=== PATIENT | male | born 1975 | race Two or more races ===

== ENCOUNTER 2024-10-03 14:26 | Emergency (ER) | payer MEDICAID, SELFPAY ==
[2024-10-03 14:37] VITALS: BP 151/81; PULSE 87; RESP 19; TEMP 37.1; O2SAT 97; BMI 34.0
--- NOTE | 2024-10-03 14:41 | XR_ITS ---
Examination: Right femur 2 views Technique bone Right femur 2 views Date and time: October 03, 2024, 1545 hours INDICATIONS: Sudden onset femur pain beginning one month ago. FINDINGS: No hip fracture or hip dislocation Shaft of the femur are intact No cortical bone destruction IMPRESSION: No fracture detected No significant hip arthritic change
--- NOTE | 2024-10-03 14:41 | XR_ITS ---
Examination: Duplex scan of the lower extremity, unilateral right Date and time of exam: October 03, 2024 1452 hours INDICATIONS: Right leg pain beginning one month ago Technique: Duplex scan of the extremity veins using B-mode/grayscale imaging and Doppler spectral analysis and color flow Attention is directed to internal echogenicity, compression and augmentation involving these veins, color flow assessment, spectral analysis Findings: Major deep venous structures in the extremity demonstrate normal course and caliber. There is no evidence of deep vein thrombosis. Normal color flow and spectral analysis Impression: Negative for DVT..
--- NOTE | 2024-10-03 14:41 | XR_ITS ---
Examination: Knee, right , 3 views Technique: Knee AP, lateral, oblique 3 views Date and time of exam: October 03, 2024 1539 hours INDICATIONS: Sudden onset knee pain today. FINDINGS: Mild osteopenia. No fracture or dislocation. Mild narrowing medial joint space. Small to moderate knee effusion IMPRESSION: No fracture.
[2024-10-03] MEDS: KETOROLAC INJ 30 MG/ML VIAL IM (14:49)
--- NOTE | 2024-10-03 17:08 | EDNOTE_ITS ---
Upper Extremity Injury RME/HPI General Chief Complaint: Extremity Injury, Upper Stated Complaint: RIGHT HIP PAIN Time Seen by Provider: 10/03/24 14:32 Arrival date/time: 10/03/24 14:26 49-year-old male presents to the emergency department today for complaint of right hip pain right upper leg pain or right knee pain ongoing intermittently for the last couple of months patient reports no fever nausea or vomiting. Limitations: no limitations Related Data Home Medications ?Medication ?Instructions ?Recorded ?Confirmed ibuprofen 800 mg tablet 800 mg PO Q8H PRN Pain 01/1301/14/20 lisinopril 40 mg tablet 40 mg PO QDAY 01/14/2001/13 penicillin V potassium 500 mg 500 mg PO TID 01/14/20 1 03/15/19 tablet Previous Rx's ?Medication ?Instructions ?Recorded cyclobenzaprine 10 mg tablet 10 mg PO TID PRN muscle s pasm 10 10/03/24 days #30 tab-caps Allergies Allergy/AdvReac Type Severity Reaction Status Date / Time NKA* Allergy Uncoded 12/13/21 14:53 Review of Systems Review of Systems Systems Reviewed: All systems reviewed, normal except as documented Constitutional Constitutional: Reports system reviewed and no additional complaints, except as documented, Denies fever(s) and Denies headache(s) Eyes Eyes: Reports system reviewed and no additional complaints, except as documented and Denies blurry vision ENT Ears, Nose, Mouth, and Throat: Reports system reviewed and no additional complaints, except as documented, Denies headache(s), Denies nasal congestion and Denies nasal discharge Cardiovascular Cardiovascular: Reports system reviewed and no additional complaints, except as documented, Denies chest pain and Denies dyspnea Respiratory Respiratory: Reports system reviewed and no additional complaints, except as documented, Denies chest congestion, Denies cough and Denies dyspnea Gastrointestinal Gastrointestinal: Reports system reviewed and no additional complaints, except as documented and Denies abdominal pain Musculoskeletal Musculoskeletal: Reports system reviewed and no additional complaints, except as documented, Denies abnormal gait, Reports arthralgias, Denies deformity, Denies numbness, Reports stiffness and Denies tingling Integumentary/Breasts Skin/Breast: Reports system reviewed and no additional complaints, except as doc umented and Denies rash Neurologic Neurologic: Reports system reviewed and no additional complaints, except as documented, Reports as per HPI, Denies abnormal gait, Denies headache(s), Denies numbness and Denies tingling Past Medical History Past Medical History CARDIAC: Positive Hypertension; Negative Congestive Heart Failure RESPIRATORY: Negative Chronic Obstructive Pulmonary Disease (COPD) GENITOURINARY: Negative Renal Disease ENDOCRINE: Negative Diabetes Mellitus Type 1 or Diabetes Mellitus Type 2 Surgical History SURGICAL: Positive Abdominal Surgery (Appendectomy ) Social History SMOKING STATUS: Never smoker SUBSTANCE USE: former substance user (former cocaine use in 2016) ED Exam General Limitations: Present no limitations General appearance: Present alert and in no apparent distress Head Head exam: Present atraumatic, normocephalic and normal inspection Eye Eye exam: Present normal appearance, PERRL and EOMI; Absent conjunctival injection ENT ENT exam: Present normal exam, normal oropharynx and mucous membranes moist Neck Neck exam: Present normal inspection, full ROM and trachea midline Chest Chest inspection: Present normal inspection and symmetric chest wall rise Respiratory Respiratory exam: Present normal lung sounds bilaterally Cardiovascular Cardiovascular exam: Present regular rate, normal rhythm and normal heart sounds Abdominal Exam Abdominal exam: Present soft and normal bowel sounds Extremities Exam Extremities exam: Present full ROM, tenderness and normal capillary refill; Absent joint swelling Back Exam Back exam: Present normal inspection and full ROM Neurological Exam Neurological exam: Present alert, oriented X3 and CN II-XII intact Psychiatric Psychiatric exam: Present normal affect and normal mood Skin Skin exam: Present warm, dry, intact and normal color Course Quality Measures none Orders Category Date Time Status US venous doppler LE RT Stat Exams 10/03/24 14:41 Completed XR femur RT 2V Stat Exams 10/03/24 14:41 Completed XR knee RT 3V Stat Exams 10/03/24 14:41 Completed Ketorolac Inj [Toradol Inj] Med 10/03/24 14:42 Discontinued 30 mg IM X1 ONE Vital Signs Vital signs: Vital Signs Temperature 98.7 F 10/03/24 14:37 Pulse Rate 87 10/03/24 14:37 Respiratory Rate 19 10/03/24 14:37 Blood Pressure 151/81 H 10/03/24 14:37 Pulse Oximetry (%) 97 10/03/24 14:37 Oxygen Delivery Method Room Air 10/03/24 14:37 O2 saturation 97% room air within normal limits Extremity Injury MDM Narrative MDM Narrative:: 49-year-old male presents to the emergency department today for complaint of right hip pain right upper leg pain or right knee pain ongoing intermittently for the last couple of months patient reports no fever nausea or vomiting. On exam patient well-appearing patient does not appear ill or toxic no acute distress patient walks steady gait Imaging obtained no acute emergent findings noted Patient discharged home in no distress to follow-up with primary care doctor in the next 24 to 48 hours and for any worsening symptoms to return to the ER immediately Patient data External records reviewed:: [facility] previous records Clinical information provided by:: patient Social determinants that could affect healthcare access:: none Patient has the following chronic illnesses:: None How is presenting disease/condition affected by chronic disease/condition?: no chronic disease Evaluation data The following diagnostics were reviewed and interpreted by me:: radiology exam(s) Lab and/or radiology exams considered but not ordered:: Radiology Interpretation Summary: Reviewed by me Medications / Prescriptions Medications or Prescriptions considered but not ordered:: Given Medication administrations:: Medication Administration History Discontinued Medications Ketorolac Tromethamine (Ketorolac Inj 30 Mg/Ml Vial) 30 mg IM X1 ONE Stop: 10/03/24 14:43 Last Admin: 10/03/24 14:49 Dose: 30 mg Documented By: MF Given Consultations Consultation(s) initiated? (list below): No Diagnosis Upper Extremity Injury Differential Diagnosis: other (Right leg pain, right hip pain, sprain) Most likely diagnosis given after review of the tests above:: Right leg pain Admission Indicated Admission indicated?: not indicated Admission Request Was there a request for admission?: No Disposition Plan Disposition Plan: Discharge Discharge Attestation Discharge Attestation: The patient and all family members were given an opportunity to ask questions and understood the discharge instructions. Discharge instructions specifically effects, indications for sooner follow up or return to the emergency department, and the expected course of current diagnosis. Patient condition: Stable Discharge Plan Plan Patient Disposition: HOME (Self Care) Discharge Disposition comment: Stable Prescriptions/Referrals Prescriptions/Med Rec: New cyclobenzaprine 10 mg tablet 10 mg PO TID PRN (Reason: muscle spasm) 10 Days Qty: 30 0RF No Action lisinopril 40 mg Tablet 40 mg PO QDAY ibuprofen 800 mg tablet 800 mg PO Q8H PRN (Reason: Pain) penicillin V potassium 500 mg tablet 500 mg PO TID Referrals: No Primary/Family,Physician [Primary Care Provider] - 10/05/24 Problem List Clinical Impression: Leg pain, right Patient/Caregiver Discharge Instructions Education Materials: ED RICE Additional Instructions: Please follow up with your primary care doctor in the next 24-48hrs for any worsening symptoms return here immediately Print Language: Ukrainian Stand Alone Forms: Christina Award Info., Work/School Release, Patient Portal Info Letter PA/MAJOR CASE DETECTIVE Supervising Physician PA/MAJOR CASE DETECTIVE Supervising Physician: Dr. guaman
== END 2024-10-03 17:33 | disposition home or self-care (01) ==
PROVIDERS: Emergency Provider Family Medicine
DX: M79.651 Pain in right thigh (principal); M25.561 Pain in right knee; M79.604 Pain in right leg
CPT/HCPCS: 73552; 73562; 93971; 96372; 99283; J1885

== ENCOUNTER 2024-11-10 16:42 | Emergency (ER) | payer MEDICAID, SELFPAY ==
[2024-11-10 17:16] VITALS: BP 156/90; PULSE 87; RESP 16; TEMP 36.9; O2SAT 99
--- NOTE | 2024-11-10 17:22 | XR_ITS ---
Examination: CT abdomen and pelvis without contrast. Coronal 3-D reconstructions. Sagittal 2-D reconstructions. Date and time of exam:November 10, 2024, 1803 hrs. Indications: Abdominal pain nausea vomiting beginning 2 days ago. CTDI: vol (mGy): 8.56 DLP: (mGycm): 582. Technique: Axial images of the abdomen have been obtained, 3 mm slice thickness Intravenous contrast material has not been administered. Low dose protocols were performed. One or more of the following dose reduction techniques were used; automated exposure control, adjustment of the mA and/or KV according to patient size, use of iterative reconstruction technique. Findings: Liver is irregular in contour and enlarged, 20 cm Contracted gallbladder Splenomegaly 12.5 cm No pancreatic or adrenal mass Aorta normal size No renal or ureteral calculi, no hydronephrosis. No bowel obstruction No diverticulitis Urinary bladder wall thickening up to 8 mm No significant prostatomegaly There is inflammatory change medial to the cecum with a small tubular structure which may represent a mildly thickened appendix Moderate osteopenia Impression: Primary hepatocellular disease, hepatomegaly 20 cm Mild splenomegaly. No renal or ureteral calculi, no hydronephrosis There is mild inflammatory change medial to the cecum, axial image 142 with a tubular structure which may represent a mildly thickened appendix, recommend repeat CT scan abdomen pelvis post intravenous contrast follow-up to exclude appendicitis Urinary bladder wall thickening up to 8 mm, consider cystitis
--- NOTE | 2024-11-10 17:22 | PD.EDRME ---
Rapid Medical Screening Exam RME Arrival date/time: 11/10/24 16:42 49-year-old male with a history of hypertension presents to the emergency room with a chief complaint of rectal bleeding, coughing up blood, and lower extremity swelling. I have greeted and performed a focused initial assessment of this patient. A comprehensive ED assessment and evaluation of the patient, analysis of all test results, and completion of the medical decision making process will be conducted by additional ED providers. Chief Complaint: Nausea/Vomiting/Diarrhea Time Seen by Provider: 11/10/24 17:09 Vital signs: Vital Signs Temperature 98.5 F 11/10/24 17:16 Pulse Rate 87 11/10/24 17:16 Respiratory Rate 16 11/10/24 17:16 Blood Pressure 156/90 H 11/10/24 17:16 Pulse Oximetry (%) 99 11/10/24 17:16 Oxygen Delivery Method Room Air 11/10/24 17:16 Vital signs reviewed by provider: Yes
[2024-11-10 17:50] LABS: Basophils # (Auto) 0.0 Thou/mm3 (0.0-0.2); Basophils % (Auto) 0 % (0-2.5); Eosinophils # (Auto) 0.1 Thou/mm3 (0.0-0.5); Eosinophils % (Auto) 1 % (0-10); Hematocrit 30.9 % (41.0-53.0); Hemoglobin 10.8 g/dL (13.5-16.0); Immature Granulocytes Auto 0.04 Thou/mm3 (0.00-0.00); Lymphocytes # (Auto) 2.5 Thou/mm3 (1.0-4.8); Lymphocytes % (Auto) 23 % (10-50); Mean Corpuscular HGB Conc 35.0 g/dl (31.0-37.0); Mean Corpuscular Hemoglobin 31.6 pg (25.0-35.0); Mean Corpuscular Volume 90 fL (80-100); Monocytes # (Auto) 1.3 Thou/mm3 (0.0-0.8); Monocytes % (Auto) 12 % (0-12); Neutrophils # (Auto) 6.9 Thou/mm3 (1.8-7.7); Neutrophils % (Auto) 64 % (37-80); Nucleated Red Blood Cell # 0.00 Thou/mm3 (0.00-0.00); Nucleated Red Blood Cell % 0 /100 WBC (0); Platelet Count 126 Thou/mm3 (140-440); RDW Standard Deviation 45.5 fL (35.1-43.9); Red Blood Count 3.42 Miln/mm3 (4.50-5.90); White Blood Count 10.8 Thou/mm3 (3.8-10.6)
[2024-11-10 18:00] LABS: Collection Type, Urine Clean Catch; Squamous Epithelial Cell,Urine 0 /hpf (0-5); WBC,Urine 0 /hpf (0-5)
[2024-11-10 18:09] LABS: Alanine Aminotransferase 44 U/L (10-49); Albumin, Serum 3.4 gm/dL (3.5-5.0); Albumin/Globulin Ratio 1.0 (1.2-2.2); Alkaline Phosphatase 223 U/L (46-116); Anion Gap 11 (7-16); Aspartate Amino Transferase 86 U/L (0-34); BUN/Creatinine Ratio 30 Ratio (12-20); Bilirubin,Total 1.8 mg/dL (0.3-1.2); Blood Urea Nitrogen 18 mg/dL (9-23); Calcium 9.1 mg/dL (8.3-10.6); Calcium (Corrected) 9.6 mg/dL (8.5-10.1); Carbon Dioxide 26.5 mMol/L (20.0-31.0); Chloride 101 mMol/L (98-107); Creatinine (Component) 0.6 mg/dL (0.6-1.3); Estimated Creatinine Clearance 149.9 mL/min (>60); Globulin 3.4 gm/dL (2.3-3.5); Glucose 164 mg/dL (74-106); Lipase 54 U/L (12-53); Osmolality,Calculated 281 (275-295); Potassium 4.3 mMol/L (3.4-5.1); Sodium 138 mMol/L (136-145); Total Protein 6.8 gm/dL (5.7-8.2); eGFR > 60 See Note
[2024-11-10 18:11] LABS: INR 1.1 (0.9-1.3); Partial Thromboplastin Time 25.4 Seconds (22.0-36.0); Prothrombin Time 11.7 Seconds (9.0-12.2)
[2024-11-10 18:31] LABS: Amorphous Crystals,Urine Present (Absent); Bilirubin,Urine Negative (Negative); Blood,Urine Negative (Negative); Clarity,Urine Clear (Clear/Hazy); Color,Urine Colorless (Lt Yel-Yel); Glucose, Urine Negative (Negative); Ketones,Urine Negative (Negative); Leukocyte Esterase,Urine Negative (Negative); Nitrite,Urine Negative (Negative); PH,Urine 6.0 (5.0-7.0); Protein,Urine Negative (Neg - Trace); RBC,Urine 1 /hpf (0-3); Specific Gravity,Urine 1.005 (1.001-1.035); Urobilinogen,Urine Negative mg/dL (0.0-1.0)
--- NOTE | 2024-11-10 19:25 | EDNOTE_ITS ---
Nausea/Vomit./Diarrhea-RME/HPI General Chief complaint: Nausea/Vomiting/Diarrhea Stated complaint: N/V X 1 DAY; DIARRHEA X 3 DAYS Time Seen by Provider: 11/10/24 17:09 Arrival date/time: 11/10/24 16:42 RME / HPI RME / HPI Narrative: 11/10/24 16:42 49-year-old male with a history of hypertension presents to the emergency room with a chief complaint of rectal bleeding, coughing up blood, and lower extremity swelling. I have greeted and performed a focused initial assessment of this patient. A comprehensive ED assessment and evaluation of the patient, analysis of all test results, and completion of the medical decision making process will be conducted by additional ED providers. --- See [facility] for Dr. Harris's HPI documentation. Related Data Home Medications ?Medication ?Instructions ?Recorded ?Confirmed ibuprofen 800 mg tablet 800 mg PO Q8H PRN Pain 01/1301/14/20 lisinopril 40 mg tablet 40 mg PO QDAY 01/14/2001/13 penicillin V potassium 500 mg 500 mg PO TID 01/14/20 1 03/15/19 tablet Previous Rx's ?Medication ?Instructions ?Recorded famotidine 40 mg tablet 40 mg PO .bedtime #30 tabs 0 11/10/24 lorazepam 2 mg tablet (Ativan) 2 mg PO Q8H #9 tabs 11/26 omeprazole 40 mg capsule,delayed 40 mg PO QDAY #30 cap s 11/10/24 release ondansetron 4 mg disintegrating 4 mg PO TID PRN nausea and 11/10/24 tablet vomiting 30 days #10 tabs Allergies Allergy/AdvReac Type Severity Reaction Status Date / Time No Known Allergies Allergy Verified 11/10/24 16:49 Review of Systems Review of Systems Systems Reviewed: All systems reviewed, normal except as documented Past Medical History Past Medical History CARDIAC: Positive Hypertension; Negative Congestive Heart Failure RESPIRATORY: Negative Chronic Obstructive Pulmonary Disease (COPD) GENITOURINARY: Negative Renal Disease ENDOCRINE: Negative Diabetes Mellitus Type 1 or Diabetes Mellitus Type 2 Surgical History SURGICAL: Positive Abdominal Surgery (Appendectomy ) Social History SMOKING STATUS: Never smoker SUBSTANCE USE: former substance user (former cocaine use in 2016) ED Exam Narrative Physical exam: See [facility] for Dr. Harris's physical exam documentation. Course Quality Measures none Orders Category Date Time Status CT abdomen pelvis wo con Stat Exams 11/10/24 17:22 Completed CBC Stat Lab 11/10/24 17:37 Completed CMP [Comprehensive Metabolic Panel] Stat Lab 11/10/24 17:37 Completed Lipase Stat Lab 11/10/24 17:37 Completed PT [Prothrombin Time with INR] Stat Lab 11/10/24 17:37 Completed PTT [Partial Thromboplastin Time] Stat Lab 11/10/24 17:37 Completed Type and Screen Stat Lab 11/10/24 17:37 Completed UA [Urinalysis] Stat Lab 11/10/24 17:55 Completed Urine Culture Stat Lab 11/10/24 17:55 Received Vital Signs Vital signs: Vital Signs Temperature 98.5 F 11/10/24 17:16 Pulse Rate 87 11/10/24 17:16 Respiratory Rate 16 11/10/24 17:16 Blood Pressure 156/90 H 11/10/24 17:16 Pulse Oximetry (%) 99 11/10/24 17:16 Oxygen Delivery Method Room Air 11/10/24 17:16 Nausea/Vomiting/Diarrhea MDM Narrative MDM Narrative:: This section includes all my notes and documentations, including HPI, PE, and ED course. Abdiel Harris MD HPI: 49yo male here with nausea and vomiting for ~12 hours. Patient has had black stools for the last 3 days and has mild epigastric pain. No hematemesis. Patient is a heavy drinker. No other complaints reported. ROS: All negative except as documented in HPI. Physical Exam: General: Alert and oriented. No acute distress when remaining still. Eyes: Conjunctivae and lids clear. ENT: No nasal congestion. Neck: Supple. Heart: RRR. Lungs: No respiratory distress. Good air movement. No rhonchi, wheezing, rales. Abdomen: Soft with no tenderness. Normal bowel sounds. No distension. No rebound or guarding. Skin: Warm and dry. Neuro: Alert and oriented X 3. I reviewed all diagnostic test results. My review of the CT abdomen pelvis report is NAD. Blood tests remarkable for Hgb 10.8, Total Bilirubin 1.8, AST 86, Alk Phos 223. UA unremarkable. At this point, diagnoses include: Alcohol abuse Recommended quitting alcohol and more outpatient care. Based on my best medical judgment, made decision no further evaluation or treatment indicated at this time. Patient understands and agrees to the discharge instructions customized and printed, see below. Discharge Instructions from Dr. Harris printed for you: 1. After extensive evaluation, the main problem is alcohol abuse. 2. To prevent serious injuries and illnesses (some fatal), we need to stop drinking alcohol today. 3. To help prevent alcohol withdrawal (see attached handout), take Ativan 2 mg every 8 hours as prescribed. If you continue to drink alcohol, don't take Ativan. 4. Eat regular nutritious meals. For good hydration, increase oral fluid and maintain clear urine. If dark or yellow, increase oral fluid. Zofran for nausea/vomiting. 5. Take multivitamin and folic acid and thiamine every day. Can buy them [id number] in pharmacies. 6. Take omeprazole every morning and famotidine every evening to prevent internal bleeding. 7. See a private doctor on 11/11/2024 for recheck and further care. Ask for help to quit alcohol without alcohol withdrawal. You may need more prescription for Ativan. Ask to review all test results and official radiology reports, to make sure you receive all necessary follow-ups and monitoring. To make sure there is no serious intra-abdominal condition, ask for help with more investigation not available here in the ER. Such as EGD or scoping the stomach, colonoscopy or scoping the colon, and referral to see special client bus driver. 8. Seek immediate medical care with worsening or with any concerns. Abdiel Harris MD Patient data External records reviewed:: [facility] previous records (Per chart review, patient was seen here on 01/14/20 for alcohol withdrawal.) Clinical information provided by:: patient Social determinants that could affect healthcare access:: none Patient has the following chronic illnesses:: HTN How is presenting disease/condition affected by chronic disease/condition?: uneffected by Evaluation data The following diagnostics were reviewed and interpreted by me:: lab results and radiology exam(s) Lab and/or radiology exams considered but not ordered:: none Interpretation Summary: I reviewed all diagnostic test results. My review of the CT abdomen pelvis report is NAD. Blood tests remarkable for Hgb 10.8, Total Bilirubin 1.8, AST 86, Alk Phos 223. UA unremarkable. Medications / Prescriptions Medications / Prescriptions considered but not ordered:: none Medication administrations:: none Consultations Consultation(s) initiated? (list below): No Diagnosis Nausea Differential Diagnosis: traveler's diarrhea, food poisoning, gastroenteritis, dehydration and other (Alcohol abuse, GERD, gastritis, PUD, biliary colic) Most likely diagnosis given after review of the tests above:: Alcohol abuse Admission Indicated Admission indicated?: not indicated Explain why admission is indicated or not indicated:: With no condition needing emergent intervention, there was no indication for admission. Admission Request Was there a request for admission?: No Disposition Plan Disposition Plan: Discharge Discharge Attestation Discharge Attestation: The patient and all family members were given an opportunity to ask questions and understood the discharge instructions. Discharge instructions specifically effects, indications for sooner follow up or return to the emergency department, and the expected course of current diagnosis. Patient condition: Stable Discharge Plan Plan Patient Disposition: HOME (Self Care) Prescriptions/Referrals Prescriptions/Med Rec: New famotidine 40 mg tablet 40 mg PO .bedtime Qty: 30 0RF omeprazole 40 mg capsule,delayed release(DR/EC) 40 mg PO QDAY Qty: 30 0RF lorazepam [Ativan] 2 mg tablet 2 mg PO Q8H Qty: 9 0RF ondansetron 4 mg tablet,disintegrating 4 mg PO TID PRN (Reason: nausea and vomiting) 30 Days Qty: 10 0RF No Action lisinopril 40 mg Tablet 40 mg PO QDAY ibuprofen 800 mg tablet 800 mg PO Q8H PRN (Reason: Pain) penicillin V potassium 500 mg tablet 500 mg PO TID Referrals: No Primary/Family,Physician [Primary Care Provider] - In 1 week Problem List Clinical Impression: Alcohol abuse Patient/Caregiver Discharge Instructions Discharge Activity: activity as tolerated Education Materials: ED Alcohol Withdrawal, ED Alcohol Abuse Additional Instructions: Discharge Instructions from Dr. Harris printed for you: 1. After extensive evaluation, the main problem is alcohol abuse. 2. To prevent serious injuries and illnesses (some fatal), we need to stop drinking alcohol today. 3. To help prevent alcohol withdrawal (see attached handout), take Ativan 2 mg every 8 hours as prescribed. If you continue to drink alcohol, don't take Ativan. 4.? Eat regular nutritious meals. For good hydration, increase oral fluid and maintain clear urine.? If dark or yellow, increase oral fluid. Zofran for nausea/vomiting. 5.? Take multivitamin and folic acid and thiamine every day. Can buy them [id number] in pharmacies. 6.? Take omeprazole every morning and famotidine every evening to prevent internal bleeding. 7.? See a private doctor on 11/11/2024 for recheck and further care. Ask for help to quit alcohol without alcohol withdrawal. You may need more prescription for Ativan. Ask to review all test results and official radiology reports, to make sure you receive all necessary follow-ups and monitoring. To make sure there is no serious intra-abdominal condition, ask for help with more investigation not available here in the ER.? Such as EGD or scoping the stomach, colonoscopy or scoping the colon, and referral to see special client bus driver. 8.? Seek immediate medical care with worsening or with any concerns. Instrucciones de nimco del Dr. Harris, impresas para usted: 1. Tras jean-claude evaluaci?n exhaustiva, el problema principal es el abuso de alcohol. 2. Para prevenir lesiones y enfermedades graves (algunas mortales), debemos dejar de beber alcohol hoy mismo. 3. Para ayudar a prevenir la abstinencia alcoh?lica (diego folleto adjunto), tome Ativan 2 mg cada 8 horas seg?n lo prescrito. Si contin?a bebiendo alcohol, no tome Ativan. 4. Consuma comidas nutritivas con regularidad. Para jean-claude buena hidrataci?n, aumente la ingesta de l?quidos por v?a oral y mantenga la orina sara. Si la orina es oscura o amarilla, aumente la ingesta de l?quidos por v?a oral. Zofran para las n?useas y los v?mitos. 5. [place] multivitam?nicos, ?cido f?shereen y tiamina todos los d?as. Puede comprarlos sin receta en farmacias. 6. [place] omeprazol todas las ma?anas y famotidina todas las noches para prevenir hemorragias internas. 7. Consulte con un m?dico particular el 12/10/2024 para jean-claude nueva revisi?n y atenci?n adicional. [place] ayuda para dejar el alcohol sin s?ndrome de abstinencia. Es posible que necesite jean-claude nueva receta de Ativan. [place] la revisi?n de todos los resultados de las pruebas y los informes radiol?gicos oficiales para asegurarse de recibir todos los seguimientos y la monitorizaci?n necesarios. Para asegurarse de que no haya jean-claude afecci?n intraabdominal grave, solicite ayuda con otras pruebas que no est?n disponibles en urgencias, husam jean-claude endoscopia estomacal (EGD) o jean-claude endoscopia g?strica, jean-claude colonoscopia o jean-claude endoscopia de colon, y jean-claude derivaci?n a un gastroenter?logo. 8. Busque atenci?n m?dica inmediata si presenta empeoramiento o si tiene alguna inquietud. Print Language: Ukrainian Stand Alone Forms: Christina Award Info., Patient Portal Info Letter
== END 2024-11-10 19:50 | disposition home or self-care (01) ==
PROVIDERS: Nurse Practitioner Family; Emergency Provider Emergency Medicine
DX: F10.129 Alcohol abuse with intoxication, unspecified (principal); K62.5 Hemorrhage of anus and rectum; I10 Essential (primary) hypertension
CPT/HCPCS: 36415; 74176; 80053; 81001; 83690; 85025; 85610; 85730; 86850; 86900; 86901; 87086; 99284